=== PATIENT | male | born 1960 | race Caucasian/White ===

== ENCOUNTER → 2016-05-06 | Outpatient (CLI) | payer OTHER, MEDICARE | LOC: RAD 08:35 | PROVIDERS: ATTEND Internal Medicine Geriatric Medicine | DX: R10.9 Unspecified abdominal pain (principal) | CPT/HCPCS: 74177; 82565 ==

== ENCOUNTER 2016-11-28 15:11 | Emergency (ER) | payer OTHER, MEDICARE ==
--- NOTE | 2016-11-28 16:49 | ER Document Report ---
ED ENT - General Chief Complaint: Ear Pain Stated Complaint: LEFT EAR PAIN Time Seen by Provider: 11/28/16 16:25 Mode of Arrival: Ambulatory Information source: Patient Notes: 56-year-old male presents to ED for plan of complete hearing loss to the left ear. He denies any injury pain drainage fever. States he went to his primary doctor who put him on some moxifloxacin drops which she has been putting 10 and twice a day with no change in his hearing. He states he has not had any pain since it started but he states he did have a basal cell tumor removed from the left side of his face recently. He states he has called all over [place] and there is no ENT for him to follow-up with any has an appointment with an ENT on Monday and . Patient states he has a history of ringing in both ears TRAVEL OUTSIDE OF THE [place] IN LAST 30 DAYS: No - HPI Patient complains to provider of: Ear problem Onset: Last week Onset/Duration: Sudden Severity: None Pain Level: Denies Location of pain: Ears Associated symptoms: Other - No hearing to left ear Similar symptoms previously: Yes Recently seen / treated by doctor: Yes - Related Data Allergies/Adverse Reactions: No Known Allergies Allergy (Unverified 11/10/11 23:17) Past Medical History - General Information source: Patient - Social History Smoking Status: Never Smoker Cigarette use (# per day): No Chew tobacco use (# tins/day): No Smoking Education Provided: No Frequency of alcohol use: None Drug Abuse: Marijuana - Occasional when he goes to [place] Occupation: None Lives with: Family Family History: Arthritis, Malignancy. denies: CAD, COPD, CVA, DM, Hyperlipidemia, Hypertension, Thyroid Disfunction Patient has suicidal ideation: No Patient has homicidal ideation: No - Past Medical History Cardiac Medical History: Reports: Hx Hypercholesterolemia Pulmonary Medical History: Reports: None EENT Medical History: Reports: Ears Neurological Medical History: Reports: None Endocrine Medical History: Reports: None Renal/ Medical History: Reports: None Malignancy Medical History: Reports Hx Skin Cancer - Because he had cancer on tBasal cell carcinoma to the left side of his face GI Medical History: Reports: None - Because he had cancer on tBasal cethat is why bl carcinoma to the left side of his face Musculoskeltal Medical History: Reports Hx Arthritis, Reports Hx Musculoskeletal Deformity, Reports Hx Musculoskeletal Trauma Skin Medical History: Reports None Psychiatric Medical History: Reports: None Traumatic Medical History: Reports: None Infectious Medical History: Reports: None Past Surgical History: Reports: Hx Orthopedic Surgery - b/l elbow and right shoulder - Immunizations Immunizations up to date: Yes Hx Diphtheria, Pertussis, Tetanus Vaccination: Yes Review of Systems - Review of Systems Constitutional: No symptoms reported EENT: Other - Loss of hearing to left ear. denies: Ear pain, Ear discharge, Nose pain, Nose congestion, Nose discharge, Sinus pressure, Sinus discharge Cardiovascular: No symptoms reported Respiratory: No symptoms reported Gastrointestinal: No symptoms reported Genitourinary: No symptoms reported Male Genitourinary: No symptoms reported Musculoskeletal: No symptoms reported Skin: No symptoms reported Hematologic/Lymphatic: No symptoms reported Neurological/Psychological: No symptoms reported -: Yes All other systems reviewed and negative Physical Exam - Vital signs Vitals: Temp Pulse Resp BP Pulse Ox 98.2 F 58 L 20 123/87 H 98 11/28/16 15:38 11/28/16 15:38 11/28/16 15:38 11/28/16 15:38 11/28/16 15:38 Interpretation: Normal - General General appearance: Appears well, Alert - HEENT Head: Normocephalic, Atraumatic Eyes: Normal Pupils: PERRL Ears: Normal External canal: Normal Tympanic membrane: Normal Hearing loss: Left, Conduction loss, Sensorineural loss Sinus: Normal Nasal: Normal Mouth/Lips: Normal Mucous membranes: Normal Pharynx: Normal Neck: Normal - Respiratory Respiratory status: No respiratory distress Chest status: Nontender Breath sounds: Normal Chest palpation: Normal - Cardiovascular Rhythm: Regular Heart sounds: Normal auscultation Murmur: No - Abdominal Inspection: Normal Distension: No distension Bowel sounds: Normal Tenderness: Nontender Organomegaly: No organomegaly - Back Back: Normal, Nontender - Extremities General upper extremity: Normal inspection, Nontender, Normal color, Normal ROM , Normal temperature General lower extremity: Normal inspection, Nontender, Normal color, Normal ROM , Normal temperature, Normal weight bearing. No: Zahraa's sign - Neurological Neuro grossly intact: Yes Cognition: Normal Orientation: AAOx4 Annika Coma Scale Eye Opening: Spontaneous Watkins Coma Scale Verbal: Oriented Watkins Coma Scale Motor: Obeys Commands Annika Coma Scale Total: 15 Speech: Normal Motor strength normal: LUE, RUE, LLE, RLE Sensory: Normal - Psychological Associated symptoms: Normal affect, Normal mood - Skin Skin Temperature: Warm Skin Moisture: Dry Skin Color: Normal Course - Re-evaluation Re-evalutation: 11/28/16 19:[address] with patient. Patient was given a CD and a written report of his CT. Patient instructed to take these and his lab results to his primary doctor and his ENT doctor. Patient states he has an ENT appointment on Monday at 130. Patient was instructed to please be sure to follow-up with this appointment. - Vital Signs Vital signs: Temp Pulse Resp BP Pulse Ox 98.2 F 58 L 20 123/87 H 98 11/28/16 15:38 11/28/16 15:38 11/28/16 15:38 11/28/16 15:38 11/28/16 15:38 - Laboratory Result Diagrams: 11/28/16 16:53 Laboratory results interpreted by me: 11/28/16 16:53 Calcium 10.3 H - Diagnostic Test Radiology reviewed: Image reviewed, Reports reviewed Discharge - Discharge Clinical Impression: Hearing loss in left ear Qualifiers: Hearing loss type: unspecified Qualified Code(s): H91.92 - Unspecified hearing loss, left ear Condition: Stable Disposition: HOME, SELF-CARE Additional Instructions: You were seen today for loss of hearing in your left ear. He stated that you have been seen by your primary doctor and started on ofloxacin drops to the left ear He stated that you have had no pain, discharge, or discomfort to the left ear Your CAT scan to the of the brain was negative for any infection, masses, or injuries. You will need to keep your appointment with the ears nose and throat doctor for Monday. Written report of the CAT scan as well as a CD of the CAT scan were given to you to take to your appointment with the ENT. FOLLOW-UP CARE: If you have been referred to a physician for follow-up care, call the physician s office for an appointment as you were instructed or within the next two days. If you experience worsening or a significant change in your symptoms, notify the physician immediately or return to the Emergency Department at any time for re-evaluation. Forms: Elevated Blood Pressure
[2016-11-28 17:44] LABS: ANION GAP 12 (5-19); BLOOD UREA NITROGEN 7 mg/dL (7-20); CALCIUM 10.3 mg/dL (8.4-10.2); CARBON DIOXIDE 27 mmol/L (22-30); CHLORIDE 105 mmol/L (98-107); CREATININE RESULT 1.06 mg/dL (0.52-1.25); GLUCOSE 86 mg/dL (75-110); POTASSIUM 4.6 mmol/L (3.6-5.0); SODIUM 144.4 mmol/L (137-145)
--- NOTE | 2016-11-28 18:24 | RADIOLOGY REPORT (SQ) ---
EXAM DESCRIPTION: CT HEAD COMBO COMPLETED DATE/TIME: 11/28/2016 6:11 pm REASON FOR STUDY: loss of hearing on left consulted radiologist COMPARISON: None. TECHNIQUE: Axial images acquired through the brain without and with intravenous contrast. Images re viewed with bone, brain and subdural windows. Images stored on PACS. All CT scanners at this facility use dose modulation, iterative reconstruction, and/or weight based d osing when appropriate to reduce radiation dose to as low as reasonably achievable (ALARA). [facility]: Dose Right [facility]: CareDose [facility]: Dose Right [facility]: Teradose 4D [facility]: Bluepay CONTRAST TYPE AND DOSE: contrast/concentration: Isovue 370.00 mg/ml; Total Contrast Delivered: 50.0 ml; Total Saline Delivered: 50.0 ml RENAL FUNCTION: Creatinine 1.1 BUN 7 RADIATION DOSE: Total exam DLP 2068 mGy cm. LIMITATIONS: None. FINDINGS: VENTRICLES: Normal size and contour. CEREBRUM: No masses. No hemorrhage. No midline shift. Normal carmichael/white matter differentiation. No ev idence for acute infarction. No enhancing lesions. CEREBELLUM: No masses. No hemorrhage. No alteration of density. No evidence for acute infarction. No enhancing lesions. EXTRA-AXIAL SPACES: No fluid collections. No enhancing lesions. ORBITS AND GLOBE: No intra- or extraconal masses. Normal contour of globe without masses. CALVARIUM: No fracture. PARANASAL SINUSES: No fluid or mucosal thickening. SOFT TISSUES: No mass or hematoma. OTHER: No other significant finding. IMPRESSION: NORMAL BRAIN CT WITHOUT AND WITH CONTRAST. EVIDENCE OF ACUTE STROKE: NO. TECHNICAL DOCUMENTATION: JOB ID: [id number] Quality ID # [id number]: Final reports with documentation of one or more dose reduction techniques (e.g., Au tomated exposure control, adjustment of the mA and/or kV according to patient size, use of iterative reconstruction technique) 2010 [employer]- All Rights Reserved
[2016-11-28 19:08] VITALS: BP 125/83
== END 2016-11-28 19:08 | disposition home or self-care (01) ==
LOC: ER 15:11
DX: H91.92 Unspecified hearing loss, left ear (principal); H92.02 Otalgia, left ear; H93.13 Tinnitus, bilateral
CPT/HCPCS: 36415; 70470; 80048; 99284